=== PATIENT | male | born 2000 | race Caucasian/White ===

== ENCOUNTER 2023-08-22 20:03 | Emergency (ER) | payer SELFPAY ==
[2023-08-22] MEDS ORDERED: Boostrix 0.5 ML (Tdap) VIAL (>/=7 yrs of age) ONE (20:35)
[2023-08-22] MEDS ORDERED: Ketorolac Tromethamine 30 MG (1 mL) VIAL ONE (21:43)
[2023-08-22] MEDS ORDERED: Morphine 4 MG/ML VIAL ONE (21:43)
[2023-08-22] MEDS ORDERED: Ondansetron PF 4 MG/2 ML Vial ONE (21:44)
[2023-08-22] MEDS ORDERED: Bacitracin 1 PK ONE (23:05)
== END 2023-08-22 23:15 | disposition home or self-care (01) ==
LOC: ERS 20:03
DX: S92.322A Displaced fracture of second metatarsal bone, left foot, initial encounter for closed fracture (principal); S92.332A Displaced fracture of third metatarsal bone, left foot, initial encounter for closed fracture; S92.342A Displaced fracture of fourth metatarsal bone, left foot, initial encounter for closed fracture; S82.52XA Displaced fracture of medial malleolus of left tibia, initial encounter for closed fracture; Z23 Encounter for immunization; V23.49XA Other motorcycle driver injured in collision with car, pick-up truck or van in traffic accident, initial encounter
CPT/HCPCS: 29515; 71045; 90471; 90715; 96374; 96375; G0390; J1885; J2270; J2405